=== PATIENT | male | born 1985 | race Caucasian/White ===

== ENCOUNTER 2022-05-28 11:42 | Emergency (ER) | payer MEDICAID, SELFPAY ==
[2022-05-28 11:50] VITALS: BP 127/71; PULSE 82; RESP 20; TEMP 36.6; O2SAT 96; BMI 36.5
--- NOTE | 2022-05-28 11:54 | EXP.UTC ---
Discharge Plan Disposition Patient Disposition: Home, Self-Care Condition: Good Prescriptions Prescriptions: New ibuprofen [IBU] 800 mg tablet 800 mg PO Q8HP PRN (Reason: Moderate Pain) Qty: 30 0RF Referrals Follow up/Referrals: Samira Aldrich PA [Primary Care Provider] - See instructions Activity Restrictions/Add. Instructions Additional Instructions/Restrictions: Rest the extremity, apply ice for 15 minutes as tolerated three or four times per day, Elevate the extremity as tolerated while you are resting. Take ibuprofen for pain if you can take this. I sent in a prescription to your pharmacy. Follow up with Dr. Ramos (orthopedics). I put in a referral and called him. He wants you to call his office first thing in the morning to be seen as soon as they can see you. Follow up with your regular doctor. GO TO THE ER FOR ANY WORSENING SYMPTOMS Clinical Impressions Clinical Impression: Left fibular fracture, Left tibial fracture Instructions Patient Instructions: DI for Shinbone Fracture, Fibula Shaft Fracture Discharge ED Provider: Víctor Rowland [facility] General Stated complaint: [id number] pain in Lt ankle Time Seen by Provider: 05/28/22 11:52 History of Present Illness Provider Complaint: He states that he fell on wet grass while walking in his yard yesterday. When this happened he twisted his left ankle and lower leg. Since then he has had left lower leg and left ankle pain and swelling. He denies other injury. He denies any neck or back pain. Related Data Previous Rx's Medication Instructions Recorded ibuprofen 800 mg tablet (IBU) 800 mg PO Q8HP PRN Moderate Pain 05/28/22 #30 tabs Allergies Allergy/AdvReac Type Severity Reaction Status Date / Time No Known Allergies Allergy Verified 05/28/22 12:03 [facility] Disclaimer: The information contained in this section may have been updated after the patient was seen, as this information can be updated by other users. Social History Smoking Status: Never smoker alcohol intake: never current occupational status: employed Travel in the last 8 weeks: None ROS Obtained: Yes All systems reviewed & no additional complaints except as documented Constitutional Constitutional: Denies chills and Denies fever(s) Eyes Eyes: Denies eye discharge ENT Ears, Nose, Mouth, and Throat: Denies dizziness, Denies otalgia and Denies sore throat Cardiovascular Cardiovascular: Denies chest pain Respiratory Respiratory: Denies shortness of breath, Denies chest congestion, Denies cough, Denies stridor and Denies wheezing Gastrointestinal Gastrointestingal: Denies nausea or vomiting Musculoskeletal Musculoskeletal: Reports as per HPI Integumentary/Breasts Skin/Breast: Denies redness, Denies rash and Denies wounds Neurologic Neurologic: Denies dizziness and Denies paresthesias Allergic/Immunologic Allergic/Immunologic: Denies wheezing Physical Exam General General appearance: alert and in no apparent distress Head Head exam: atraumatic, normocephalic and normal inspection Eye Eye exam: Present normal appearance, PERRL and EOMI ENT ENT exam: Present normal exam, normal oropharynx, mucous membranes moist, TM's normal bilaterally and normal external ear exam Neck Neck exam: Present normal inspection, full ROM and trachea midline; Absent meningismus or lymphadenopathy Chest Chest inspection: Present normal inspection and symmetric chest wall rise; Absent tenderness Respiratory Respiratory exam: Present normal lung sounds bilaterally; Absent respiratory distress Cardiovascular Cardiovascular exam: Present regular rate and normal rhythm; Absent JVD Expanded Cardiovascular Exam Peripheral pulses: 2+: radial (R), radial (L), posterior tibialis (R), posterior tibialis (L), dorsalis pedis (R) and dorsalis pedis (L) Abdominal Exam Abdominal exam: Present soft and normal bowel sounds; A
--- NOTE | 2022-05-28 12:01 | XR_ITS ---
PROCEDURE INFORMATION: Exam: XR Left Tibia and Fibula Exam date and time: 05/28/2022 12:02 PM Age: 37 years old Clinical indication: Injury or trauma; Fall; Blunt trauma; Patient HX: Patient fell while power walking yesterday. Left lower leg pain near ankle with swelling. TECHNIQUE: Imaging protocol: Radiologic exam of the left tibia and fibula. Views: 2 views. COMPARISON: No relevant prior studies available. FINDINGS: Bones/joints: Small partially visualized knee joint effusion. No fracture in the proximal tibia or fibula. Comminuted fracture of the distal fibula. Comminuted fracture of the distal tibia. There is widening of the more mortise due to tibial and fibular fractures. Small posterior calcaneal enthesophyte. Soft tissues: Severe soft tissue swelling surrounding the ankle. IMPRESSION: 1. No fracture in the proximal tibia or fibula. Comminuted fracture of the distal fibula. Comminuted fracture of the distal tibia. There is widening of the more mortise due to tibial and fibular fractures. Small posterior calcaneal enthesophyte. 2. Severe soft tissue swelling surrounding the ankle. 3. Small partially visualized knee joint effusion.
--- NOTE | 2022-05-28 12:01 | XR_ITS ---
PROCEDURE INFORMATION: Exam: XR Left Foot Exam date and time: 05/28/2022 12:05 PM Age: 37 years old Clinical indication: Injury or trauma; Fall; Blunt trauma; Foot; Left; Patient HX: Patient fell while powerwalking yesterday. TECHNIQUE: Imaging protocol: Radiologic exam of the left foot. Views: 3 or more views. COMPARISON: CR XR ANKLE LT MIN 3V 05/28/2022 12:03 PM FINDINGS: Bones/joints: Partially visualized comminuted fracture of the distal fibula and distal tibia. The mortise is irregular due to tibial and fibular fractures. No fracture in the talus, calcaneus, midfoot, metatarsals, phalanges. Soft tissues: Severe soft tissue swelling surrounding the ankle. IMPRESSION: 1. Partially visualized comminuted fracture of the distal fibula and distal tibia. The mortise is irregular due to tibial and fibular fractures. No fracture in the talus, calcaneus, midfoot, metatarsals, phalanges. 2. Severe soft tissue swelling surrounding the ankle.
--- NOTE | 2022-05-28 12:01 | XR_ITS ---
PROCEDURE INFORMATION: Exam: XR Left Ankle Exam date and time: 05/28/2022 12:03 PM Age: 37 years old Clinical indication: Injury or trauma; Fall; Blunt trauma; Ankle; Left; Patient HX: Patient fell while power walking yesterday. TECHNIQUE: Imaging protocol: Radiologic exam of the left ankle. Views: 3 or more views. COMPARISON: CR XR TIBIA FIBULA LT 2V 05/28/2022 12:02 PM FINDINGS: Bones/joints: Comminuted fracture of the distal fibula. Comminuted fracture of the distal tibia. There is widening of the more mortise due to tibial and fibular fractures. Small posterior calcaneal enthesophyte. Soft tissues: Severe soft tissue swelling surrounding the ankle. IMPRESSION: 1. Comminuted fracture of the distal fibula. Comminuted fracture of the distal tibia. There is widening of the more mortise due to tibial and fibular fractures. Small posterior calcaneal enthesophyte. 2. Severe soft tissue swelling surrounding the ankle.
[2022-05-28 13:49] VITALS: BP 127/71; PULSE 82; RESP 20; TEMP 36.6; O2SAT 96
== END 2022-05-28 14:04 | disposition home or self-care (01) ==
PROVIDERS: Emergency Provider Nurse Practitioner Family; PCP Physician Assistant
DX: S82.302A Unspecified fracture of lower end of left tibia, initial encounter for closed fracture (principal); S82.402A Unspecified fracture of shaft of left fibula, initial encounter for closed fracture; W01.0XXA Fall on same level from slipping, tripping and stumbling without subsequent striking against object, initial encounter
CPT/HCPCS: 29515; 73590; 73610; 73630; 99212; 99214; G0463